=== PATIENT | female | born 1965 | race Two or more races ===

== ENCOUNTER 2025-03-27 07:23 | Outpatient (CLI) | payer OTHER | END 2025-03-27 07:24 | disposition home or self-care (01) | LOC: NUCLEAR 07:23 | PROVIDERS: ATTEND Internal Medicine | DX: C50.811 Malignant neoplasm of overlapping sites of right female breast (principal) ==

== ENCOUNTER 2025-04-03 05:56 | Day surgery (SDC) | payer OTHER ==
[2025-04-03] MEDS ORDERED: TRAM1TAB98 PO (07:51)
[2025-04-03] MEDS ORDERED: LIDOCAINE HCL 2%/EPINEPHRINE 20ML VIAL IJ ONE (09:15)
[2025-04-03] MEDS ORDERED: BUPIVACAINE HCL 30 ML VIAL IJ ONE (09:15)
[2025-04-03] MEDS ORDERED: CEFAZOLIN SODIUM 1,000 MG VIAL IV ONE (09:15)
[2025-04-03] MEDS ORDERED: HEPARIN SODIUM,PORCINE 500 UNITS/5 ML VIAL IV ONE (09:15)
[2025-04-03 10:22] VITALS: BP 122/69; O2SAT 100
== END 2025-04-03 09:45 | disposition home or self-care (01) ==
LOC: CIR.AMB 05:56
PROVIDERS: ATTEND Surgery
DX: C50.111 Malignant neoplasm of central portion of right female breast (principal)
CPT/HCPCS: 36561; C1781

== ENCOUNTER 2025-07-20 10:00 | Day surgery (SDC) | payer OTHER ==
[2025-07-19 13:09] LABS: INR 1.04
[~2025-07-20 10:00] MED LIST: TRAM1TAB98 PO; ZOLOFT100 MG PO
[2025-07-20] MEDS ORDERED: CEFAZOLIN SODIUM 1,000 MG VIAL ONE (11:55)
== END 2025-07-20 15:50 | disposition home or self-care (01) ==
LOC: CIR.AMB 10:00 → O/R 11:00 → CIR.AMB 11:00
PROVIDERS: ATTEND Surgery
DX: C50.411 Malignant neoplasm of upper-outer quadrant of right female breast (principal); R92.1 Mammographic calcification found on diagnostic imaging of breast; N60.81 Other benign mammary dysplasias of right breast; R59.0 Localized enlarged lymph nodes; D48.7 Neoplasm of uncertain behavior of other specified sites